=== PATIENT | female | born 1975 | race Two or more races ===

== ENCOUNTER 2018-11-29 19:46 | Emergency (ER) | payer OTHER ==
[~2018-11-29] VITALS: Ht 157.5 cm; Wt 49.9 kg
[2018-11-29] MEDS ORDERED: NKM (19:52)
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
[2018-11-29] MEDS ORDERED: NAPROXEN250 MG ORAL (20:05)
[2018-11-29] MEDS ORDERED: ROBAXIN-750750 MG PO (20:05)
[2018-11-29 20:06] VITALS: BP 145/83
[2018-11-29] MEDS ORDERED: Ketorolac 60mg Inj IM ONE (20:15)
[2018-11-29] MEDS ORDERED: Acetaminophen 500mg (ES) tab ORAL ONE (20:15)
[2018-11-29 20:27] VITALS: BP 145/83
--- NOTE | 2018-11-29 20:27 | NUR ---
ED Nurse Note: pt cleared to be d/c per ERMD, pt discharge and aftercare instruction provided w/ prescription, pt education done via discussion andhandout, pt advised to follow up with pcp or return to ed if changes in condition, vss, ambulatory w/ steady gait, left w/ all belongings.
== END 2018-11-29 20:27 | disposition home or self-care (01) ==
LOC: EMR 20:18
DX: T14.8XXA Other injury of unspecified body region, initial encounter (principal); V49.9XXA Car occupant (driver) (passenger) injured in unspecified traffic accident, initial encounter; Y92.410 Unspecified street and highway as the place of occurrence of the external cause; M54.5 Low back pain
CPT/HCPCS: 81025; 96372; 99283